=== PATIENT | female | born 1955 | race African-American/Black ===

== ENCOUNTER 2018-05-29 21:18 | Emergency (ER) | payer OTHER ==
[~2018-05-29] VITALS: Ht 160 cm; Wt 61.7 kg
[2018-05-29 21:20] VITALS: BP 136/71
[2018-05-29] MEDS ORDERED: GEMF600T5 PO (21:37)
[2018-05-29] MEDS ORDERED: CYCL10TA13 PO (21:37)
[2018-05-29] MEDS ORDERED: ASPI-1440 PO (21:37)
[2018-05-29] MEDS ORDERED: ORE25 PO (21:37)
[2018-05-29] MEDS ORDERED: METF500T PO (21:37)
[2018-05-29] MEDS ORDERED: ATEN100T6 PO (21:37)
--- NOTE | 2018-05-29 21:37 | NUR ---
BIBA TO ER BED 2
[2018-05-29] MEDS ORDERED: MORPHINE SULFATE 4 MG/ML SYR IM ONE (21:50)
--- NOTE | 2018-05-29 21:50 | NUR ---
PT BIBA FOR LOWER BACK PAIN. PT REPORTS DJD DISEASE AND PAIN HAS BECOME UNBEARBLE LAST DAY. PT REPORTS SEVERE SHARP 10/10 PAIN WITH ANY MOVEMENT. PT TOOK TYELNOL 3 AND FLEXERIL AT 1900 WITH NO RELIEF. ER MD TO SEE PT. SAFETY PRECAUTIONS IN PLACE. MEDHX: DM, HLD, DJD, HLD RX: TYLENOL 3, METFORMIN, ATENELOL, FLEXERIL
[2018-05-30] MEDS ORDERED: MORPHINE SULFATE 4 MG/ML SYR IM ONE ×2 (00:55→01:55)
[2018-05-30] MEDS ORDERED: methylPREDNISolone SS 125 MG/2 ML VIAL IVP ONE (01:55)
--- NOTE | 2018-05-30 01:55 | NUR ---
ATTEMPTED TO DC PT. PT STATED PAIN LEVEL WAS AT 3/10. PT WAS UNABLE TO SIT UP DUE TO SEVER PAIN WITH MOVEMENT. ER MD NOTIFIED. WILL CONTINUE TO MONITOR.
[2018-05-30] MEDS ORDERED: MORPHINE SULFATE 4 MG/ML SYR IVP ONE (02:15)
[2018-05-30] MEDS ORDERED: MORPHINE SULFATE 10 MG/ML VIAL ONE (02:20)
[2018-05-30 02:59] VITALS: BP 110/55
--- NOTE | 2018-05-30 02:59 | NUR ---
Patient discharged with v/s stable. Written and verbal after care instructions given and explained. Patient alert, oriented and verbalized understanding of instructions. Wheel Chair Assisted with to car. All questions addressed prior to discharge. ID band removed. Patient advised to follow up with PMD. Rx of NORCO given. Patient educated on indication of medication including possible reaction and side effects. Opportunity to ask questions provided and answered.
== END 2018-05-30 02:59 | disposition home or self-care (01) ==
LOC: MED 21:18
DX: M54.5 Low back pain (principal); F17.210 Nicotine dependence, cigarettes, uncomplicated; E11.9 Type 2 diabetes mellitus without complications; I10 Essential (primary) hypertension; E07.9 Disorder of thyroid, unspecified; Z98.890 Other specified postprocedural states; Z79.82 Long term (current) use of aspirin; Z79.84 Long term (current) use of oral hypoglycemic drugs; Z79.899 Other long term (current) drug therapy; Z90.49 Acquired absence of other specified parts of digestive tract
CPT/HCPCS: 81002; 81025; 96372; 96374; 96375; 99283; J2270; J2930